=== PATIENT | male | born 1965 | race Caucasian/White ===

== ENCOUNTER 2022-10-26 13:36 | Inpatient (IN) | payer SELFPAY ==
[~2022-10-26] VITALS: Ht 175.3 cm; Wt 134.2 kg
[2022-10-26] MEDS ORDERED: cefTRIAXone SOD 1,000 MG VL IM ONE (15:15)
[2022-10-26] MEDS ORDERED: ACETAMINOPHEN 500 MG TAB PO ONE (15:15)
[2022-10-26 16:27] LABS: Basophils # (auto) 0 10 ^3/uL (0-0.2); Basophils % (auto) 0.1 % (0.0-2.0); Eosinophils # (auto) 0.2 10 ^3/uL (0-0.8); Eosinophils % (auto) 0.8 % (0.0-7.0); Hematocrit 47.9 % (41.0-53.0); Hemoglobin 16.3 g/dL (13.5-17.5); Lymphocytes # (auto) 0.6 10 ^3/uL (0.4-5.4); Lymphocytes % (auto) 3.2 % (10.0-50.0); Mean Corpuscular Hemoglobin 30.3 pg (28.0-32.0); Monocytes # (auto) 0.5 10 ^3/uL (0-1.3); Monocytes % (auto) 2.5 % (0.0-12.0); Neutrophils # (auto) 17.9 10 ^3/uL (1.6-8.6); Neutrophils % (auto) 93.4 % (37.0-80.0); Nucleated Red Blood Cells % 0.2 %; Red Blood Cells 5.38 10^6/uL (4.5-5.90); Red Cell Distribution Width 14.5 % (11.8-14.3); White Blood Cell 19.1 10^3/uL (4.4-10.8)
[2022-10-26 16:37] LABS: Albumin 3.1 g/dL (3.4-5.0); Calcium 9.2 mg/dL (8.5-10.1); Potassium 3.7 mmol/L (3.5-5.1)
[2022-10-26 16:40] LABS: BUN/Creatinine Ratio 10.5
[2022-10-26 16:42] LABS: Bilirubin, Total 1.9 mg/dL (0.2-1.0); Total Protein 8.5 g/dL (6.4-8.2)
[2022-10-26 16:43] LABS: Lactic Acid w/Reflex 2.1 mmol/L (0.4-2.0)
[2022-10-26] MEDS ORDERED: SODIUM CHLORIDE 0.9% 3,650 ML IV ONE (17:00)
[2022-10-26] MEDS ORDERED: VANCOMYCIN 1GM/250ML 250 ML IV ONE (17:00)
[2022-10-26] MEDS ORDERED: TEMAZEPAM 15 MG CAP PO PRN (20:45)
[2022-10-26] MEDS ORDERED: ONDANSETRON HCL 4 MG/2 ML VIAL IV PRN (20:45)
[2022-10-26] MEDS: SODIUM CHLORIDE 0.9% 1,000 ML IV SCH (20:45)
[2022-10-26] MEDS: CLINDAMYCIN 600MG IV 50 ML IV SCH (21:32)
[2022-10-27] MEDS: ACETAMINOPHEN 325 MG TAB PO PRN (01:20)
[2022-10-27] MEDS: CLINDAMYCIN 600MG IV 50 ML IV SCH ×3 (06:08→22:24)
[2022-10-27 06:29] LABS: Basophils # (auto) 0 10 ^3/uL (0-0.2); Basophils % (auto) 0.1 % (0.0-2.0); Eosinophils # (auto) 0.3 10 ^3/uL (0-0.8); Eosinophils % (auto) 1.5 % (0.0-7.0); Hematocrit 40.5 % (41.0-53.0); Hemoglobin 13.5 g/dL (13.5-17.5); Lymphocytes # (auto) 0.8 10 ^3/uL (0.4-5.4); Lymphocytes % (auto) 4.5 % (10.0-50.0); Mean Corpuscular Hemoglobin 29.6 pg (28.0-32.0); Mean Corpuscular Hgb Conc. 33.3 g/dL (32.0-36.0); Mean Corpuscular Volume 88.6 fL (80.0-100.0); Monocytes # (auto) 0.4 10 ^3/uL (0-1.3); Monocytes % (auto) 2.6 % (0.0-12.0); Neutrophils # (auto) 15.7 10 ^3/uL (1.6-8.6); Neutrophils % (auto) 91.3 % (37.0-80.0); Red Blood Cells 4.57 10^6/uL (4.5-5.90); Red Cell Distribution Width 14.7 % (11.8-14.3); White Blood Cell 17.2 10^3/uL (4.4-10.8)
[2022-10-27 06:46] LABS: Potassium 3.1 mmol/L (3.5-5.1)
[2022-10-27 07:04] LABS: Albumin 2.4 g/dL (3.4-5.0); Bilirubin, Total 1.5 mg/dL (0.2-1.0); Calcium 8.1 mg/dL (8.5-10.1); Total Protein 6.8 g/dL (6.4-8.2)
[2022-10-27] MEDS: SODIUM CHLORIDE 0.9% 1,000 ML IV SCH ×3 (08:42→19:55)
[2022-10-27] MEDS: HYDROcodone-ACET 5/325MG TAB PO PRN ×2 (08:42→14:16)
[2022-10-27] MEDS: cefTRIAXone 1GM/50ML D5W 50 ML IV SCH (09:06)
[2022-10-27 10:23] VITALS: BP 110/71
[2022-10-27] MEDS ORDERED: POTASSIUM CHL 20 Meq TABLET PO ONE (16:15)
[2022-10-27 16:42] VITALS: BP 96/55
[2022-10-27 17:17] LABS: Urine Bacteria NONE SEEN /hpf (None Seen); Urine Blood 1+ /uL (Negative); Urine Specific Gravity 1.023 (1.001-1.035); Urine Sperm PRESENT /hpf (None Seen); Urine WBC 187 /hpf (0 - 3)
[2022-10-27 17:23] LABS: Protein, Urine 105.2 mg/dL (0.0-11.9)
[2022-10-27 22:00] VITALS: BP 114/57
[2022-10-28] MEDS: SODIUM CHLORIDE 0.9% 1,000 ML IV SCH ×4 (02:35→22:35)
[2022-10-28 05:00] VITALS: BP_SYST 114; BP_SYST 99; BP_DIAS 45; BP_DIAS 67
[2022-10-28] MEDS: CLINDAMYCIN 600MG IV 50 ML IV SCH ×3 (06:01→15:55)
[2022-10-28 09:09] VITALS: BP 95/55
[2022-10-28] MEDS: cefTRIAXone 1GM/50ML D5W 50 ML IV SCH (10:42)
[2022-10-28 12:53] VITALS: BP 98/55
[2022-10-28] MEDS: ACETAMINOPHEN 325 MG TAB PO PRN (19:54)
[2022-10-28] MEDS: HYDROcodone-ACET 5/325MG TAB PO PRN (21:34)
[2022-10-28 22:00] VITALS: BP 136/61
[2022-10-29] MEDS: SODIUM CHLORIDE 0.9% 1,000 ML IV SCH ×2 (05:15→11:33)
[2022-10-29] MEDS: CLINDAMYCIN 600MG IV 50 ML IV SCH ×2 (06:25→14:00)
[2022-10-29 06:56] LABS: Potassium 4.2 mmol/L (3.5-5.1)
[2022-10-29 07:01] LABS: BUN/Creatinine Ratio 20.7; Calcium 8.5 mg/dL (8.5-10.1); Phosphorus 3.3 mg/dL (2.5-4.90); Uric Acid 7.2 mg/dL (3.5-7.2)
[2022-10-29] MEDS: cefTRIAXone 1GM/50ML D5W 50 ML IV SCH (09:00)
== END 2022-10-29 18:05 | disposition left against medical advice (07) | DRG 871 ==
LOC: ER 13:36 → OVERFLOW 20:44 → TELE-E-ADS 10-27 09:37 → WEST WING 10-27 14:37
PROVIDERS: ADMIT Nurse Practitioner; ATTEND Family Medicine
DX: A41.9 Sepsis, unspecified organism (principal); N17.0 Acute kidney failure with tubular necrosis; E87.20 Acidosis, unspecified; L03.115 Cellulitis of right lower limb; E87.1 Hypo-osmolality and hyponatremia; Z68.41 Body mass index [BMI] 40.0-44.9, adult; E66.01 Morbid (severe) obesity due to excess calories; E87.6 Hypokalemia; Z83.3 Family history of diabetes mellitus; Z20.822 Contact with and (suspected) exposure to COVID-19; R74.01 Elevation of levels of liver transaminase levels; E86.0 Dehydration; N18.30 Chronic kidney disease, stage 3 unspecified; Z53.29 Procedure and treatment not carried out because of patient's decision for other reasons
CPT/HCPCS: 36415; 76775; 80048; 80053; 81001; 82570; 83605; 84100; 84156; 84550; 85025; 85652; 87040; 87426; 93971; 96365; 96372; G0378; J0696; J2405; J3490